=== PATIENT | female | born 1960 | race Caucasian/White ===

== ENCOUNTER → 2020-09-12 | Outpatient (CLI) | payer MEDICARE, OTHER | LOC: EXRD 08:28 | DX: M81.0 Age-related osteoporosis without current pathological fracture (principal); R93.7 Abnormal findings on diagnostic imaging of other parts of musculoskeletal system; M85.852 Other specified disorders of bone density and structure, left thigh | CPT/HCPCS: 77080 ==

== ENCOUNTER → 2020-12-25 | Outpatient (CLI) | payer MEDICARE, OTHER ==
[~2020-12-25] VITALS: Ht 175.3 cm; Wt 68.9 kg
== END ==
LOC: OPSV 11:00
DX: M81.0 Age-related osteoporosis without current pathological fracture (principal)
CPT/HCPCS: 96372